=== PATIENT | male | born 1960 | race Caucasian/White ===

== ENCOUNTER 2016-09-15 14:34 | Emergency (ER) ==
[2016-09-15 14:41] VITALS: BP 144/84; TEMP 99.3; BMI 27.0
[2016-09-15] MEDS: DECADRON 4 MG/ML SDV IM STA (16:52)
[2016-09-15 16:56] LABS: BASOPHILS # (AUTO) 0.1 K/uL (0-0.2); BASOPHILS % (AUTO) 0.5 % (0.0-3.0); EOSINOPHILS % (AUTO) 0.4 % (0.0-7.0); HEMOGLOBIN 13.5 g/dl (14.0-18.0); IMMATURE GRANULOCYTE % (AUTO) 0.4 % (0.0-5.0); LYMPHOCYTES # (AUTO) 3.8 K/uL (0.60-3.4); LYMPHOCYTES % (AUTO) 35.1 (10.0-50.0); MEAN CORPUSCULAR HEMOGLOBIN 27.8 pg (27.0-31.0); MEAN CORPUSCULAR HGB CONC 33.8 (31.8-35.4); MEAN CORPUSCULAR VOLUME 82.5 fl (80.0-94.0); MONOCYTES # (AUTO) 0.6 K/uL (0.4-2.0); MONOCYTES % (AUTO) 5.4 (0-10); NEUTROPHILS # (AUTO) 6.3 K/ul (2.0-6.9); NEUTROPHILS % (AUTO) 58.2; PLATELET COUNT 342 10^3/uL (140-440); RED BLOOD COUNT 4.85 10^6/ul (4.70-6.10); WHITE BLOOD COUNT 10.75 K/ul (4.2-10.2)
[2016-09-15 17:13] LABS: ALBUMIN 3.6 g/dL (3.4-5.0); ALBUMIN/GLOBULIN RATIO 1.16; ANION GAP 12.2; BILIRUBIN,TOTAL 0.29 mg/dL (0.00-1.20); BUN/CREATININE RATIO 15.11; CALCIUM 9.2 mg/dL (8.2-10.2); CREATININE 0.86 mg/dL (0.60-1.10); POTASSIUM 3.2 mmol/L (3.5-5.1); TOTAL PROTEIN 6.7 g/dL (6.4-8.2)
--- NOTE | 2016-09-15 17:37 | ED.PDOC ---
General ED Provider: Dr. NING STALLWORTH Chief Complaint: Rash Stated Complaint: RASH Time Seen by Physician: 14:47 (TREATED FOR SAME RASH AT [place] NO IMPROVEMENTS) Mode of Arrival: Walk-In Information Source: Patient Exam Limitations: No limitations Primary Care Provider: ROQUE FENG Nursing and Triage Documentation Reviewed and Agree: Yes Skin Complaint Exam - Skin Rash/Itching Complaint/Exam Onset/Duration: 2 WEEKS Symptoms Are: Still present Initial Severity: Moderate Current Severity: Moderate Potential Exposures: Reports: Insect bite Aggravating: Reports: None Alleviating: Reports: None Associated Signs and Symptoms: Denies: Difficulty breathing, Fever, Chills Related History: Similar episode Skin Findings: Present: Target lesions, Vesicles Differential Diagnoses: Other (INSECT BITE) Review of Systems - Review Of Systems Constitutional: Reports: No symptoms Eyes: Reports: No symptoms Ears, Nose, Mouth, Throat: Reports: No symptoms Respiratory: Reports: No symptoms Cardiac: Reports: No symptoms GI: Reports: No symptoms : Reports: No symptoms Musculoskeletal: Reports: No symptoms Skin: Reports: Rash (CHEST, ARMS.LEGS ABDOMEN TARGET LIKE ) Neurological: Reports: No symptoms Endocrine: Reports: No symptoms Hematologic/Lymphatic: Reports: No symptoms All Other Systems: Reviewed and Negative Past Medical History - Past Medical History Previously Healthy: Yes Endocrine: Reports: Dyslipidemia Cardiovascular: Reports: Hypertension Respiratory: Reports: COPD Hematological: Reports: None Gastrointestinal: Reports: Pancreatitis Genitourinary: Reports: None Neuro/Psych: Reports: None Musculoskeletal: Reports: Arthritis, Back Pain Cancer: Reports: None - Surgical History General Surgical History: Reports: Unknown - Family History Family History: Reports: Unknown - Social History Smoking Status: Current every day smoker, Heavy tobacco smoker Hx Substance Use: Yes (MARIJUANA) Alcohol Screening: None Physical Exam - Physical Exam Appearance: Well-appearing, No pain distress, Well-nourished Eyes: MIKE, EOMI, Conjunctiva clear ENT: Ears normal, Nose normal, Oropharynx normal Respiratory: Airway patent, Breath sounds clear, Breath sounds equal, Respirations nonlabored Cardiovascular: RRR, Pulses normal, No rub, No murmur GI/: Soft, Nontender, No masses, Bowel sounds normal, No Organomegaly Musculoskeletal: Normal strength, ROM intact, No edema, No calf tenderness Skin: Warm, Dry (RASH CONSISTENT WITH INSECT BITE ON ARMS , LEGS CHEST, ABDOMEN) Neurological: Sensation intact, Motor intact, Reflexes intact, Cranial nerves intact, Alert, Oriented Psychiatric: Affect appropriate, Mood appropriate Critical Care Note - Critical Care Note Total Time (mins): 0 Course - Course Hematology/Chemistry: 09/15/16 16:45 09/15/16 16:45 Orders, Labs, Meds: Lab Review 09/15/16 16:45 WBC 10.75 H RBC 4.85 Hgb 13.5 L Hct 40.0 L MCV 82.5 MCH 27.8 MCHC 33.8 RDW Coeff of Loretta 14.4 Plt Count 342 Immature Gran % (Auto) 0.4 Neut % (Auto) 58.2 Lymph % (Auto) 35.1 [place] % (Auto) 5.4 Eos % (Auto) 0.4 Baso % (Auto) 0.5 Immature Gran # (Auto) 0.0 Neut # 6.3 Lymph # 3.8 H [place] # 0.6 Eos # 0.0 Baso # 0.1 Sodium 140 Potassium 3.2 L Chloride 107 Carbon Dioxide 24 Anion Gap 12.2 BUN 13 Creatinine 0.86 Estimated GFR (MDRD) 92.00 BUN/Creatinine Ratio 15.11 Glucose 91 Calcium 9.2 Total Bilirubin 0.29 AST 21 ALT 16 Alkaline Phosphatase 77 Total Protein 6.7 Albumin 3.6 Globulin 3.1 Albumin/Globulin Ratio 1.16 Orders Category Date Time Status BLOOD CULTURE Stat LAB 09/15/16 16:45 Received CBC W/ AUTO DIFF Stat LAB 09/15/16 16:45 Completed COMPREHENSIVE METABOLIC PANEL Stat LAB 09/15/16 16:45 Completed LYME, WESTERN BLOT, SERUM Stat LAB 09/15/16 16:45 Received Dexamethasone 4 mg/ml Inj [Decadron 4 mg/ml Sdv] MEDS 09/15/16 16:34 Discontinued 4 mg IM ONCE STA Medications Discontinued Medications Generic Name Dose Route Start Last Admin Trade Name Freq PRN Reason Stop Dose Admin Dexamethasone Sodium Phosphate 4 mg 09/15/16 16:34 09/15/16 16:52 Decadron 4 Mg/Ml Sdv IM 09/15/16 16:35 4 mg ONCE STA Administration Vital Signs: Temp Pulse Resp BP Pulse Ox 09/15/16 14:35 99.3 F 80 16 144/84 H 97 Departure - Departure Time of Disposition: 17:39 Disposition: HOME SELF-CARE Discharge Problem: Pruritic rash Insect bite Qualifiers: Encounter type: initial encounter Qualifier Code: (W57.XXXA) Bitten or stung by nonvenomous insect and other nonvenomous arthropods, initial encounter Instructions: Acute Rash (ED) Condition: Good Pt referred to PMD for follow-up: No Additional Instructions: Please call your Family Physician as soon as possible to schedule a follow-up appointment. Allergies/Adverse Reactions: Allergies No Known Allergies Allergy (Verified 09/15/16 14:43) Home Medications: Ambulatory Orders Hydrocodone/Acetaminophen [Garibaldi 10-325 Tablet] 2 tab PO Q6H 06/11/15 Omeprazole [Prilosec] 20 mg PO QDAC 06/11/15 Clonidine HCl [Clonidine HCl ER] 0.1 mg PO BEDTIME 09/15/16 Cyclobenzaprine HCl [Flexeril] 10 mg PO DAILY 09/15/16
[2016-09-20 02:09] LABS: IGG P18 AB Absent (.); IGG P23 AB Absent (.); IGG P28 AB Absent (.); IGG P30 AB Absent (.); IGG P39 AB Absent (.); IGG P41 AB Present (.); IGG P45 AB Absent (.); IGG P58 AB Absent (.); IGG P66 AB Absent (.); IGG P93 AB Absent (.); IGM P39 AB Absent (.); IGM P41 AB Present (.)
[2016-09-20 07:54] LABS: LYME IGG WB INTERP Negative (.); LYME IGM WB INTERP Negative (.)
== END 2016-09-15 17:49 | disposition home or self-care (01) ==
LOC: ED 14:34 → MERGE 14:34 → ED 17:49
DX: R21 Rash and other nonspecific skin eruption (principal); L29.9 Pruritus, unspecified; W57.XXXA Bitten or stung by nonvenomous insect and other nonvenomous arthropods, initial encounter; F17.210 Nicotine dependence, cigarettes, uncomplicated
CPT/HCPCS: 36415; 80053; 85025; 86617; 87040; 96372; 99282